=== PATIENT | male | born 1965 | race African-American/Black ===

== ENCOUNTER 2020-03-13 21:35 | Emergency (ER) | payer BC, MEDICAID ==
[~2020-03-13] VITALS: Ht 175.3 cm; Wt 69.0 kg
[2020-03-13] MEDS ORDERED: SODIUM CHLORIDE 0.9% 1,000 ML IV ONE (22:07)
[2020-03-13] MEDS ORDERED: ACETAMINOPHEN 325MG TABLET PO STA (22:07)
[2020-03-13] MEDS ORDERED: CLONIDINE 0.2MG TABLET PO ONE (22:30)
[2020-03-13] MEDS ORDERED: OLANZAPINE 10 MG/VIAL IM ONE (23:15)
[2020-03-14 00:03] LABS: CLARITY URINE CLOUDY (CLEAR); COLOR URINE YELLOW (YELLOW); KETONES URINE 1+ (NEGATIVE); LEUKOCYTE ESTERASE URINE NEGATIVE (NEGATIVE); NITRITE URINE NEGATIVE (NEGATIVE); OCCULT BLOOD URINE 2+ (NEGATIVE); PROTEIN URINE 2+ (NEGATIVE); SPECIFIC GRAVITY URINE 1.021 (1.005-1.030); UROBILINOGEN URINE 0.2 E.U./dL (0.2-1.0)
[2020-03-14 00:22] LABS: *AMPHETAMINES SCREEN URINE PRESUMTIVE POSITIVE (NEGATIVE); CANNABINOID URINE SCREEN PRESUMTIVE POSITIVE (NEGATIVE); METHADONE URINE SCREEN NEGATIVE (NEGATIVE); OPIATES URINE SCREEN NEGATIVE (NEGATIVE); PHENCYCLIDINE URINE SCREEN NEGATIVE (NEGATIVE)
[2020-03-14 00:23] LABS: *BARBITURATES SCREEN URINE NEGATIVE (NEGATIVE); *BENZODIAZEPINES SCREEN URINE NEGATIVE (NEGATIVE); *COCAINE SCREEN URINE PRESUMTIVE POSITIVE (NEGATIVE)
[2020-03-14 00:23] LABS: HEMATOCRIT. 38.1 % (42.0-52.0); HEMOGLOBIN. 13.2 g/dL (14.0-18.0); MEAN CORPUSCULAR HEMOGLOBIN 37.3 pg (28.0-32.0); MEAN CORPUSCULAR VOLUME 107.5 fL (80.0-94.0); MEAN PLATELET VOLUME 8.3 fl (7.4-10.4); PLATELET 278 x1000/uL (130-400); RED BLOOD CELL COUNT 3.55 mill/uL (4.7-6.1); RED CELL DISTRIBUTION WIDTH 14.3 % (11.6-14.6)
[2020-03-14 00:27] LABS: CHLORIDE 99 mEq/L (98-107)
[2020-03-14 00:33] LABS: ETHANOL BLOOD < 10 mg/dL
[2020-03-14] MEDS ORDERED: LORAZEPAM 2MG/ML CPJ IV ONE (01:45)
[2020-03-14] MEDS ORDERED: HALOPERIDOL LACTATE 5MG/ML VIAL IM ONE (01:45)
[2020-03-14 02:10] LABS: PLATELET ESTIMATE NORMAL
[2020-03-14 06:44] VITALS: BP 129/82
== END 2020-03-14 09:45 | disposition home or self-care (01) ==
LOC: ER 21:35
DX: F15.10 Other stimulant abuse, uncomplicated (principal); F14.129 Cocaine abuse with intoxication, unspecified; G92 Toxic encephalopathy; F16.129 Hallucinogen abuse with intoxication, unspecified; F12.129 Cannabis abuse with intoxication, unspecified; F10.129 Alcohol abuse with intoxication, unspecified; Y90.8 Blood alcohol level of 240 mg/100 ml or more; R00.0 Tachycardia, unspecified
CPT/HCPCS: 36415; 80053; 80305; 80320; 81003; 83880; 84484; 85025; 93005; 96361; 96372; 96374; 99291; J1630; J2060; J3490; J7030; G0480